=== PATIENT | male | born 2000 | race Two or more races ===

== ENCOUNTER 2021-07-29 02:56 | Emergency (ER) | payer BC ==
[~2021-07-29] VITALS: Ht 167.6 cm; Wt 58.0 kg
[2021-07-29] MEDS ORDERED: ONDANSETRON 4MG ODT PO STA (03:36)
[2021-07-29 04:55] LABS: BASOPHILS % 0.2 % (0.0-2.0); EOSINOPHILS % 0.4 % (0.0-5.0); HEMATOCRIT. 44.8 % (42.0-52.0); HEMOGLOBIN. 14.8 g/dL (14.0-18.0); LYMPHOCYTES % 14.9 % (20.0-50.0); MEAN CORPUSCULAR HEMOGLOBIN 29.3 pg (28.0-32.0); MEAN CORPUSCULAR VOLUME 88.6 fL (80.0-94.0); NEUTROPHILS % 76.5 % (40.0-76.0); PLATELET 240 x1000/uL (130-400); RED BLOOD CELL COUNT 5.05 mill/uL (4.7-6.1); RED CELL DISTRIBUTION WIDTH 13.5 % (11.6-14.6)
[2021-07-29 05:02] LABS: CHLORIDE 109 mEq/L (98-107)
[2021-07-29] MEDS ORDERED: ONDA4TAB11 PO (05:17)
[2021-07-29 05:20] VITALS: BP 112/63
[2021-07-29 05:21] LABS: CLARITY URINE CLEAR (CLEAR); COLOR URINE YELLOW (YELLOW); KETONES URINE TRACE (NEGATIVE); LEUKOCYTE ESTERASE URINE NEGATIVE (NEGATIVE); NITRITE URINE NEGATIVE (NEGATIVE); OCCULT BLOOD URINE NEGATIVE (NEGATIVE); PH URINE 5.5 (4.5-8.0); PROTEIN URINE NEGATIVE (NEGATIVE); SPECIFIC GRAVITY URINE 1.015 (1.005-1.030); UROBILINOGEN URINE 0.2 E.U./dL (0.2-1.0)
== END 2021-07-29 05:30 | disposition home or self-care (01) ==
LOC: ER 02:56
DX: J06.9 Acute upper respiratory infection, unspecified (principal); R11.0 Nausea; Z20.822 Contact with and (suspected) exposure to COVID-19
CPT/HCPCS: 36415; 80048; 81003; 85025; 99283; C9803; Q0162; U0003; U0005